=== PATIENT | male | born 1960 ===

== ENCOUNTER 2017-11-06 10:38 | Emergency (ER) | payer MEDICAID ==
[2017-11-06 10:45] VITALS: TEMP 97; O2SAT 100
[2017-11-06 10:46] VITALS: BMI 28.4
--- NOTE | 2017-11-06 11:15 | ED PDOC ---
HPI: Abdomen Time Seen by Provider: 11/06/17 10:51 Chief Complaint (Provider): Abdominal Pain History Per: Patient History/Exam Limitations: no limitations Onset/Duration Of Symptoms: Days (14) Location Of Pain/Discomfort: RUQ Associated Symptoms: denies: Fever, Vomiting, Diarrhea Additional Complaint(s): 57 years old male with history of hypertension and hepatic cirrhosis secondary to hepatitis C presents to the ED for evaluation of right sided abdominal pain associated with dizziness onset 2 weeks. Patient denies any vomiting, diarrhea or fever. PMD: non provided Past Medical History Reviewed: Historical Data, Nursing Documentation, Vital Signs Vital Signs: Last Vital Signs Temp 97 F L 11/06/17 10:44 Pulse 65 11/06/17 10:44 Resp 22 11/06/17 10:44 BP 119/75 11/06/17 10:44 Pulse Ox 100 11/06/17 14:12 - Medical History PMH: Hepatitis (C), HTN Other PMH: Hepatic cirrhosis - Surgical History Surgical History: No Surg Hx - Family History Family History: States: Unknown Family Hx - Home Medications Home Medications: Ambulatory Orders Medication Instructions Recorded traMADol [Ultram] 50 mg PO Q8 #10 tab 11/06/17 - Allergies Allergies/Adverse Reactions: Allergies Allergy/AdvReac Type Severity Reaction Status Date / Time No Known Allergies Allergy Verified 11/06/17 11:11 Review of Systems ROS Statement: Except As Marked, All Systems Reviewed And Found Negative Constitutional: Negative for: Fever Gastrointestinal: Positive for: Abdominal Pain (Right sided). Negative for: Vomiting, Diarrhea Neurological: Positive for: Dizziness Physical Exam - Reviewed Nursing Documentation Reviewed: Yes Vital Signs Reviewed: Yes - Physical Exam Appears: Positive for: Non-toxic, No Acute Distress Head Exam: Positive for: ATRAUMATIC, NORMOCEPHALIC Skin: Positive for: Normal Color, Warm, Dry Cardiovascular/Chest: Positive for: Regular Rate, Rhythm. Negative for: Murmur Respiratory: Positive for: Normal Breath Sounds. Negative for: Respiratory Distress Gastrointestinal/Abdominal: Positive for: Soft, Tenderness (to right upper quadrant). Negative for: Distended, Guarding, Rebound Back: Positive for: Normal Inspection. Negative for: L CVA Tenderness, R CVA Tenderness Neurologic/Psych: Positive for: Alert, Oriented (x3). Negative for: Motor/ Sensory Deficits - Laboratory Results Result Diagrams: 11/06/17 11:25 11/06/17 11:25 - ECG O2 Sat by Pulse Oximetry: 100 (RA) Pulse Ox Interpretation: Normal Medical Decision Making Medical Decision Making: Time: 1116 Initial Plan: --Abd/Pelvis IV Contrast CT --Ammonia --MCP --Urine dipstick --CBC Time: 1404 CT RESULTS FINDINGS: LOWER THORAX: Trace bilateral basilar dependent atelectasis identified. A punctate calcified granuloma seen in the right middle or lower lobe laterally. LIVER: There is borderline splenomegaly. The liver surface is quite nodular there is diminished attenuation throughout the liver compatible with cirrhosis and hepatic steatosis. No gross lesion or ductal dilatation. GALLBLADDER AND BILE DUCTS: Gallbladder is mildly distended and otherwise appears unremarkable. No common bile duct dilatation. No radiodense cholelithiasis. PANCREAS: No peripancreatic reaction or fluid collection. No gross lesion or ductal dilatation. SPLEEN: The spleen is grossly enlarged measuring 22 cm greatest dimension with a inhomogeneous enhancement appreciated, nonspecific finding. ADRENALS: Unremarkable. No mass. KIDNEYS AND URETERS: Right kidney appears unremarkable. Left kidney is remarkable for 1.9 cm lucency at the lower pole measuring 25 Hounsfield units reflecting either complex cyst or possible nodular lesion. The kidneys also compressed by splenomegaly somewhat. No obstructive uropathy bilaterally. VASCULATURE: Although there is a minimally atherosclerotic nonaneurysmal abdominal aorta, extensive network varices identified including esophageal, gastrohepatic ligament and perisplenic varices. 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 BOWEL: Evaluation of the gastrointestinal tract is limited due the lack of oral contrast administration. Moderate fecal loading seen in various large-bowel segments. APPENDIX: Normal appendix. PERITONEUM: Unremarkable. No free fluid. No free air. LYMPH NODES: Unremarkable. No enlarged lymph nodes. BLADDER: Unremarkable. REPRODUCTIVE: Prostate gland enlargement appears mild. BONES: No acute fracture. OTHER FINDINGS: None. IMPRESSION: 1. 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 Prominent splenomegaly is likely related and is grossly prominent up to 22 cm with inhomogeneous enhancement throughout the spleen. Clinically correlate nevertheless. 2. Unremarkable appearing pancreas. 3. Enlarged prostate gland. ----- Scribe Attestation: Documented by Carolyne Redding, acting as a scribe for David Cheatham MD. Provider Scribe Attestation: All medical record entries made by the Scribe were at my direction and personally dictated by me. I have reviewed the chart and agree that the record accurately reflects my personal performance of the history, physical exam, medical decision making, and the department course for this patient. I have also personally directed, reviewed, and agree with the discharge instructions and disposition. Disposition - Clinical Impression Clinical Impression: Cirrhosis - Patient ED Disposition Is Patient to be Admitted: No Counseled Patient/Family Regarding: Studies Performed, Diagnosis, Need For Followup, Rx Given - Disposition Referrals: [facility] [Outside] Disposition: Routine/Home Disposition Time: 14:11 Prescriptions: traMADol [Ultram] 50 mg PO Q8 #10 tab Instructions: Cirrhosis
[2017-11-06 11:38] LABS: BASO % 0.2 % (0.0-2.0); EOS # 0.1 K/uL (0.0-0.7); EOS % 3.1 % (0.0-4.0); HEMOGLOBIN 14.3 g/dL (12.0-18.0); LYMPH # 0.9 K/uL (1.0-4.3); LYMPH % 23.5 % (20.0-40.0); MEAN CELL VOLUME 93.7 fl (80.0-94.0); MEAN CORPUSCULAR HEMOGLOBIN 33.2 pg (27.0-31.0); MEAN CORPUSCULAR HGB CONC 35.4 g/dL (33.0-37.0); MEAN PLATELET VOLUME 8.5 fl (7.2-11.7); MONO # 0.3 K/uL (0.0-0.8); MONO % 9.3 % (0.0-10.0); NEUT # 2.4 K/uL (1.8-7.0); NEUT % 63.9 % (50.0-75.0); NRBC % 0.2 % (0.0-0.0); RBC 4.3 Mil/uL (4.40-5.90); RED CELL DISTRIBUTION WIDTH 14.4 % (11.5-14.5); WHITE BLOOD COUNT 3.7 K/uL (4.8-10.8)
[2017-11-06 11:52] LABS: ALB/GLOB RATIO 0.8 (1.0-2.1); ALBUMIN 3.5 g/dL (3.5-5.0); ALT/SGPT 67 U/L (21-72); AST/SGOT 77 U/L (17-59); BLOOD UREA NITROGEN 11 mg/dl (9-20); CALCIUM 9.2 mg/dL (8.4-10.2); GFR NON-AFRICAN AMERICAN > 60
[2017-11-06] MEDS ORDERED: Iohexol 300 100 ML IJ ONE (12:56)
[2017-11-06] MEDS ORDERED: Sodium Chloride 0.9% 50 ML IV ONE (12:57)
--- NOTE | 2017-11-06 14:05 | CT ---
Date of service: 11/06/2017 PROCEDURE: CT Abdomen and Pelvis with contrast HISTORY: Abd pain COMPARISON: None. TECHNIQUE: Following the intravenous administration of iodinated contrast material, a CT examination of the abdomen and pelvis performed from the domes of the diaphragms to the symphysis pubis with reformatted datasets provided in axial, sagittal and coronal planes. Oral contrast was not administered as per referring physician request. Contrast dose: Omnipaque 300, 95 cc Radiation dose: Total exam DLP = 701.61 mGy-cm. This CT exam was performed using one or more of the following dose reduction techniques: Automated exposure control, adjustment of the mA and/or kV according to patient size, and/or use of iterative reconstruction technique. FINDINGS: LOWER THORAX: Trace bilateral basilar dependent atelectasis identified. A punctate calcified granuloma seen in the right middle or lower lobe laterally. LIVER: There is borderline splenomegaly. The liver surface is quite nodular there is diminished attenuation throughout the liver compatible with cirrhosis and hepatic steatosis. No gross lesion or ductal dilatation. GALLBLADDER AND BILE DUCTS: Gallbladder is mildly distended and otherwise appears unremarkable. No common bile duct dilatation. No radiodense cholelithiasis. PANCREAS: No peripancreatic reaction or fluid collection. No gross lesion or ductal dilatation. SPLEEN: The spleen is grossly enlarged measuring 22 cm greatest dimension with a inhomogeneous enhancement appreciated, nonspecific finding. ADRENALS: Unremarkable. No mass. KIDNEYS AND URETERS: Right kidney appears unremarkable. Left kidney is remarkable for 1.9 cm lucency at the lower pole measuring 25 Hounsfield units reflecting either complex cyst or possible nodular lesion. The kidneys also compressed by splenomegaly somewhat. No obstructive uropathy bilaterally. VASCULATURE: Although there is a minimally atherosclerotic nonaneurysmal abdominal aorta, extensive network varices identified including esophageal, gastrohepatic ligament and perisplenic varices. 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 BOWEL: Evaluation of the gastrointestinal tract is limited due the lack of oral contrast administration. Moderate fecal loading seen in various large-bowel segments. APPENDIX: Normal appendix. PERITONEUM: Unremarkable. No free fluid. No free air. LYMPH NODES: Unremarkable. No enlarged lymph nodes. BLADDER: Unremarkable. REPRODUCTIVE: Prostate gland enlargement appears mild. BONES: No acute fracture. OTHER FINDINGS: None. IMPRESSION: 1. 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 Prominent splenomegaly is likely related and is grossly prominent up to 22 cm with inhomogeneous enhancement throughout the spleen. Clinically correlate nevertheless. 2. Unremarkable appearing pancreas. 3. Enlarged prostate gland.
[2017-11-06 15:47] VITALS: BP 136/83; PULSE 70; RESP 18
== END 2017-11-06 14:23 | disposition home or self-care (01) ==
LOC: H.ER 10:38
DX: K74.60 Unspecified cirrhosis of liver (principal); B18.2 Chronic viral hepatitis C; I10 Essential (primary) hypertension; N40.0 Benign prostatic hyperplasia without lower urinary tract symptoms
CPT/HCPCS: 74177; 80053; 82140; 85025; 99283; Q9967